=== PATIENT | female | born 1985 | race Caucasian/White ===

== ENCOUNTER 2021-08-04 03:39 | Emergency (ER) | payer SELFPAY ==
[~2021-08-04] VITALS: Ht 167.6 cm; Wt 64.0 kg
[2021-08-04] MEDS ORDERED: ONDANSETRON HCL 4MG/2ML INJ IV STA (05:19)
[2021-08-04] MEDS ORDERED: SODIUM CHLORIDE 0.9% 1,000 ML IV ONE (05:30)
[2021-08-04 05:53] LABS: BASOPHILS % 0.6 % (0.0-2.0); HEMATOCRIT. 34.8 % (36.0-48.0); HEMOGLOBIN. 11.2 g/dL (12.0-16.0); LYMPHOCYTES % 13.9 % (20.0-50.0); MEAN CORPUSCULAR HEMOGLOBIN 24.8 pg (28.0-32.0); MEAN CORPUSCULAR VOLUME 77.2 fL (81.0-99.0); MEAN PLATELET VOLUME 8.7 fl (7.4-10.4); MONOCYTES % 3.7 % (2.0-8.0); NEUTROPHILS % 81.8 % (40.0-76.0); PLATELET 251 x1000/uL (130-400); RED BLOOD CELL COUNT 4.51 mill/uL (4.2-5.4); RED CELL DISTRIBUTION WIDTH 17.4 % (11.6-14.6)
[2021-08-04 05:58] LABS: CHLORIDE 114 mEq/L (98-107)
[2021-08-04 06:24] LABS: ETHANOL BLOOD 217 mg/dL
[2021-08-04 06:32] LABS: HCG SCREEN NEGATIVE
[2021-08-04 08:20] VITALS: BP 105/50
== END 2021-08-04 08:34 | disposition home or self-care (01) ==
LOC: ER 03:39
DX: F10.229 Alcohol dependence with intoxication, unspecified (principal); Y90.7 Blood alcohol level of 200-239 mg/100 ml; R03.0 Elevated blood-pressure reading, without diagnosis of hypertension
CPT/HCPCS: 36415; 80053; 80320; 84703; 85025; 96361; 96374; 99285; J2405; J7030; G0480